=== PATIENT | male | born 1980 | race African-American/Black ===

== ENCOUNTER 2022-03-18 19:27 | Emergency (ER) | payer MEDICAID ==
[~2022-03-18] VITALS: Ht 185.4 cm; Wt 82.0 kg
[2022-03-19] MEDS ORDERED: D-ME473S50 PO (00:11)
[2022-03-19] MEDS ORDERED: NAPR-681 PO (00:11)
[2022-03-19 00:40] VITALS: BP 125/78
== END 2022-03-19 00:42 | disposition home or self-care (01) ==
LOC: ER 19:27
DX: J06.9 Acute upper respiratory infection, unspecified (principal); Z20.822 Contact with and (suspected) exposure to COVID-19
CPT/HCPCS: 87070; 87426; 87430; 99283; C9803

== ENCOUNTER 2022-04-01 05:24 | Emergency (ER) | payer MEDICAID ==
[~2022-04-01] VITALS: Ht 185.4 cm; Wt 89.1 kg
[~2022-04-01 05:24] MED LIST: D-ME473S50 PO; NAPR-681 PO
[2022-04-01 06:30] VITALS: BP 117/74
[2022-04-01] MEDS ORDERED: BENZ100C86 MT (09:39)
== END 2022-04-01 09:51 | disposition home or self-care (01) ==
LOC: ER 05:24
DX: R05.9 Cough, unspecified (principal); Z20.822 Contact with and (suspected) exposure to COVID-19
CPT/HCPCS: 71045; 87426; 99284; C9803

== ENCOUNTER 2022-04-08 18:14 | Emergency (ER) | payer MEDICAID ==
[~2022-04-08] VITALS: Ht 185.4 cm; Wt 82.0 kg
[~2022-04-08 18:14] MED LIST changes: +BENZ100C86 MT
[2022-04-08] MEDS ORDERED: ACETAMINOPHEN 325MG TABLET PO NR (20:30)
[2022-04-08] MEDS ORDERED: ACETAMINOPHEN 325MG TABLET PO ONE (20:30)
[2022-04-08] MEDS ORDERED: TOPUD PO (22:13)
[2022-04-08 22:34] VITALS: BP 124/75
== END 2022-04-08 22:34 | disposition home or self-care (01) ==
LOC: ER 18:43
DX: M79.662 Pain in left lower leg (principal); M79.661 Pain in right lower leg
CPT/HCPCS: 99282

== ENCOUNTER 2022-08-28 00:35 | Emergency (ER) | payer MEDICAID ==
[~2022-08-28] VITALS: Ht 185.4 cm; Wt 87.0 kg
[~2022-08-28 00:35] MED LIST changes: +TOPUD PO
[2022-08-28 00:51] VITALS: BP 141/81
[2022-08-28] MEDS ORDERED: GUAI-453 PO (01:59)
== END 2022-08-28 02:23 | disposition home or self-care (01) ==
LOC: ER 00:35
DX: B34.9 Viral infection, unspecified (principal); Z79.899 Other long term (current) drug therapy
CPT/HCPCS: 99281

== ENCOUNTER 2022-09-03 19:35 | Emergency (ER) | payer MEDICAID ==
[~2022-09-03] VITALS: Ht 185.4 cm; Wt 82.0 kg
[~2022-09-03 19:35] MED LIST changes: +GUAI-453 PO
[2022-09-03 19:42] VITALS: BP 115/52
[2022-09-03] MEDS ORDERED: FLUT9.9S BOTHNSTRLS (23:16)
[2022-09-03] MEDS ORDERED: CLAR10 MT (23:16)
== END 2022-09-03 23:40 | disposition home or self-care (01) ==
LOC: ER 19:35
DX: J30.9 Allergic rhinitis, unspecified (principal); Z20.822 Contact with and (suspected) exposure to COVID-19
CPT/HCPCS: 87426; 87804; 99283; C9803

== ENCOUNTER 2022-09-25 23:39 | Emergency (ER) | payer MEDICAID ==
[~2022-09-25] VITALS: Ht 185.4 cm; Wt 82.0 kg
[~2022-09-25 23:39] MED LIST changes: +CLAR10 MT; +FLUT9.9S BOTHNSTRLS
[2022-09-26] MEDS ORDERED: KETOROLAC 60MG/2ML VIAL IM ONE (03:30)
[2022-09-26 04:05] VITALS: BP 115/76
[2022-09-26] MEDS ORDERED: IBUP-2028 MT (04:17)
[2022-09-27] MEDS ORDERED: LIDO700A15 TP (02:07)
[2022-09-27] MEDS ORDERED: TOPUD MT (02:07)
== END 2022-09-26 04:26 | disposition home or self-care (01) ==
LOC: ER 23:39
DX: M25.561 Pain in right knee (principal); M25.562 Pain in left knee; G89.29 Other chronic pain
CPT/HCPCS: 96372; 99283; J1885; Z7610

== ENCOUNTER 2022-09-26 22:32 | Emergency (ER) | payer MEDICAID ==
[~2022-09-26] VITALS: Ht 182.9 cm; Wt 74.0 kg
[~2022-09-26 22:32] MED LIST changes: +IBUP-2028 MT
[2022-09-27] MEDS ORDERED: TOPUD MT (02:07)
[2022-09-27] MEDS ORDERED: LIDO700A15 TP (02:07)
[2022-09-27] MEDS ORDERED: LIDOCAINE 5% PATCH TOP SCH (02:15)
[2022-09-27] MEDS ORDERED: ACETAMINOPHEN 325MG TABLET PO ONE (02:15)
[2022-09-27 02:38] VITALS: BP 139/81
== END 2022-09-27 02:40 | disposition home or self-care (01) ==
LOC: ER 22:32
DX: M54.2 Cervicalgia (principal)
CPT/HCPCS: 99282

== ENCOUNTER 2022-09-30 22:18 | Emergency (ER) | payer MEDICAID ==
[~2022-09-30] VITALS: Ht 185.4 cm; Wt 83.2 kg
[~2022-09-30 22:18] MED LIST changes: +LIDO700A15 TP; +TOPUD MT
[2022-09-30 22:31] VITALS: BP 127/104
[2022-09-30] MEDS ORDERED: ACETAMINOPHEN 325MG TABLET PO ONE (23:00)
== END 2022-09-30 23:28 | disposition home or self-care (01) ==
LOC: ER 22:18
DX: R51.9 Headache, unspecified (principal); Z79.899 Other long term (current) drug therapy
CPT/HCPCS: 99282

== ENCOUNTER 2022-11-13 22:18 | Emergency (ER) | payer MEDICAID ==
[~2022-11-13] VITALS: Ht 180.3 cm; Wt 78.1 kg
[2022-11-14] VITALS: O2SAT 99
[2022-11-14] MEDS ORDERED: KETOROLAC 60MG/2ML VIAL IM ONE (05:45)
[2022-11-14] MEDS ORDERED: NAPR-681 MT (06:12)
[2022-11-14 06:25] VITALS: BP 129/84; PULSE 79; RESP 15; TEMP 98.3
== END 2022-11-14 06:33 | disposition home or self-care (01) ==
LOC: ER 22:18
DX: M25.531 Pain in right wrist (principal); M25.532 Pain in left wrist
CPT/HCPCS: 73110; 96372; 99283; J1885; Z7610

== ENCOUNTER 2022-12-04 02:18 | Emergency (ER) | payer MEDICAID ==
[~2022-12-04] VITALS: Ht 185.4 cm; Wt 88.0 kg
[~2022-12-04 02:18] MED LIST changes: +NAPR-681 MT
[2022-12-04 02:30] VITALS: BP 118/70; PULSE 71; RESP 18; TEMP 99.1; O2SAT 97
[2022-12-04] MEDS ORDERED: CYCL10TA21 MT (03:11)
== END 2022-12-04 04:53 | disposition home or self-care (01) ==
LOC: ER 02:32
DX: M43.6 Torticollis (principal); Z79.899 Other long term (current) drug therapy
CPT/HCPCS: 99281